=== PATIENT | male | born 1970 | race Caucasian/White ===

== ENCOUNTER 2020-05-05 16:46 | Inpatient (IN) ==
[2020-05-05] MEDS ORDERED: ASPIRIN CHEW 324 MG PO STA (17:02)
[2020-05-05] MEDS ORDERED: SODIUM CHLORIDE 0.9% 1000ML 1,000 ML IV STA (17:02)
--- NOTE | 2020-05-05 17:09 | Emergency Department Note ---
History of Present Illness General Chief Complaint: Chest Pain Stated Complaint: CHEST PAIN SINCE LAST NIGHT Time Seen by Provider: 05/05/20 16:52 Source: patient Mode of arrival: ambulatory Limitations: no limitations History of Present Illness Provider Complaint: chest pain Onset (ago): day(s) 1 Duration: intermittent Onset: during rest Pain Location: substernal Pain Radiation: none Severity: severe Maximum Pain Intensity: 7 Current Pain Intensity: 7 Quality: + heaviness Relieved By: + nothing Exacerbated By: + nothing Associated symptoms: + diaphoresis Treatments prior to arrival: none This 50-year-old male patient presents to the emergency department today for evaluation of intermittent chest pain since last night. The patient states he did get into an argument with his last night and then when lying down to go to bed, developed several episodes of chest pain lasting approximately 30 mi nutes each. The patient states the pains did resolve on their own. They are nonexertional in nature. There is no associated shortness of breath, but he was feeling somewhat diaphoretic when the pains occurred. Patient states he awoke this morning and was feeling well. He was working on the house, painting and doing other labor type of activities but stresses that he was not doing anything overly exertional, but felt fine throughout the day. This evening when he got home, he sat down to eat some Cheetos when the pain began again. He states at this time, his pain is maybe a 1, "like it is there", but is not as severe as a 7 out of 10 as he was experiencing previously. Patient denies any palpitations. No associated shortness of breath. No cough or hemoptysis. No tachypnea. No numbness or tingling. No nausea or vomiting. No recent illness. Patient reports family history of heart attack in his maternal grandmother in her 60s and atrial fibrillation in his mother but no other history of cardiac disease that he is aware of. Patient is a former smoker. He denies any current tobacco use. He did just have a biometric screening completed yesterday and labs cholesterol appears to be good. Patient states he has been walking and doing some exercise with his over the past 2 to 3 days and has not experienced any chest pain during activity. Home Medications Medication Instructions Recorded Confirmed Type epinephrine 0.3 mg/0.3 mL 0.3 ml IM .INJECT 0.3ML INTRAMU #1 07/12/19 05/05/20 Rx injection, auto-injector ea amlodipine 5 mg tablet 5 mg PO DAILY #90 tab 04/10/20 05/05/20 Rx Allergies Allergy/AdvReac Type Severity Reaction Status Date / Time almond Allergy Unknown Verified 05/05/20 17:55 insect venom Allergy Unknown Verified 05/05/20 17:55 No Known Drug Allergies Allergy Unknown Verified 05/05/20 17:55 Past Med/Surg History Medical History (Updated 05/05/20 @ 23:33 by Macey Donovan PA-C) Allergic reaction to bee sting HTN (hypertension) Tobacco dependence Surgical History History of tonsillectomy History of tooth extraction Family History Other No significant family history Denies family history of Ovarian cancer Prostate cancer Myocardial infarction Breast cancer Colorectal cancer Social History Smoking Status: Current every day smoker Cigarettes Per Day: 10; Hx Alcohol Use: Yes Alcohol type: beer Hx Substance Use: No Preferred Language: Yoruba Communication Ability: Effective Visual Impairment: No Limitations Hearing Ability: Normal [employer] Required: No Beliefs That Will Affect Care: None marital status: Current Living Situation: Spouse and Family current occupational status: employed 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 Other Information That Helps Us Care for You: No Feels Safe at Home: Yes Safety Concerns: Feels Safe At This Time Childhood Exposure to Second-Hand Smoke: No caffeine: Yes Dental Care, Regularly: Yes Physical Activity Frequency: Daily Seatbelt Use: always Sunscreen Use: Yes Assistive Devices: None Review of Systems A total of 10 systems reviewed and were otherwise negative Physical Exam Vital Signs Vital Signs - 24 hr 05/05/20 16:48 05/05/20 17:07 05/05/20 17:17 Temperature 37.1 C Temperature Source Oral Pulse Rate 87 75 Pulse Rate from SpO2 Sensor Respiratory Rate 18 20 Respiratory Effort / Characteristics Non-Labored Spontaneous Respiratory Depth Normal Respiratory Pattern Regular Blood Pressure 163/98 H Blood Pressure Mean 119 Blood Pressure Position Sitting Pulse Oximetry 96 96 Oxygen Delivery Method Room Air Room Air Sepsis Recent Fever Within 48 Hours No Sepsis New/Unexplained Change in Mental Status N/A Sepsis Action Taken by Nursing No Action Required 05/05/20 17:19 05/05/20 17:20 05/05/20 17:30 Temperature Temperature Source Pulse Rate 77 72 67 Pulse Rate from SpO2 Sensor 77 72 68 Respiratory Rate 13 14 16 Respiratory Effort / Characteristics Respiratory Depth Respiratory Pattern Blood Pressure 139/96 134/86 Blood Pressure Mean 110 102 Blood Pressure Position Pulse Oximetry 95 97 96 Oxygen Delivery Method Sepsis Recent Fever Within 48 Hours Sepsis New/Unexplained Change in Mental Status Sepsis Action Taken by Nursing 05/05/20 17:31 05/05/20 18:00 05/05/20 18:01 Temperature Temperature Source Pulse Rate 68 71 71 Pulse Rate from SpO2 Sensor 69 72 72 Respiratory Rate 15 14 22 Respiratory Effort / Characteristics Respiratory Depth Respiratory Pattern Blood Pressure 130/87 Blood Pressure Mean 101 Blood Pressure Position Pulse Oximetry 97 97 98 Oxygen Delivery Method Sepsis Recent Fever Within 48 Hours Sepsis New/Unexplained Change in Mental Status Sepsis Action Taken by Nursing 05/05/20 18:30 05/05/20 18:31 05/05/20 19:00 Temperature Temperature Source Pulse Rate 70 74 76 Pulse Rate from SpO2 Sensor 71 72 76 Respiratory Rate 13 16 17 Respiratory Effort / Characteristics Respiratory Depth Respiratory Pattern Blood Pressure 146/97 H Blood Pressure Mean 113 Blood Pressure Position Pulse Oximetry 97 98 96 Oxygen Delivery Method Sepsis Recent Fever Within 48 Hours Sepsis New/Unexplained Change in Mental Status Sepsis Action Taken by Nursing 05/05/20 19:01 05/05/20 19:02 05/05/20 19:30 Temperature Temperature Source Pulse Rate 74 68 66 Pulse Rate from SpO2 Sensor 71 69 66 Respiratory Rate 20 22 14 Respiratory Effort / Characteristics Respiratory Depth Respiratory Pattern Blood Pressure 140/102 H 122/89 Blood Pressure Mean 114 100 Blood Pressure Position Pulse Oximetry 98 98 96 Oxygen Delivery Method Room Air Room Air Sepsis Recent Fever Within 48 Hours Sepsis New/Unexplained Change in Mental Status Sepsis Action Taken by Nursing 05/05/20 19:31 05/05/20 20:00 05/05/20 20:30 Temperature Temperature Source Pulse Rate 66 69 74 Pulse Rate from SpO2 Sensor 67 70 76 Respiratory Rate 14 14 21 Respiratory Effort / Characteristics Respiratory Depth Respiratory Pattern Blood Pressure 125/70 Blood Pressure Mean 88 Blood Pressure Position Pulse Oximetry 97 96 97 Oxygen Delivery Method Room Air Room Air Room Air Sepsis Recent Fever Within 48 Hours Sepsis New/Unexplained Change in Mental Status Sepsis Action Taken by Nursing 05/05/20 20:31 Temperature Temperature Source Pulse Rate 69 Pulse Rate from SpO2 Sensor 69 Respiratory Rate 20 Respiratory Effort / Characteristics Respiratory Depth Respiratory Pattern Blood Pressure 134/86 Blood Pressure Mean 102 Blood Pressure Position Pulse Oximetry 97 Oxygen Delivery Method Room Air Sepsis Recent Fever Within 48 Hours Sepsis New/Unexplained Change in Mental Status Sepsis Action Taken by Nursing VITALS: Vitals are noted on the nurse's note and reviewed by myself. Vital signs stable. GENERAL: This is a 50-year-old white male, in no acute distress, nondiaphoretic, well-developed well-nourished. SKIN: The skin was without rashes, erythema, edema, or bruising. There is no tenting of the skin. Capillary refill less than 2 seconds. HEAD: Normocephalic atraumatic. EYES: Conjunctivae without injection, sclerae without icterus. NECK: Supple without nuchal rigidity. No lymphadenopathy. Cervical spine is nontender. No JVD. HEART: Regular rate and rhythm without murmurs gallops or rubs. LUNGS: Clear to auscultation bilaterally without wheezes, rales or rhonchi. No retractions or accessory muscle use. ABDOMEN: Positive bowel sounds x 4. Normal tympanic percussion. Soft, nontender, without masses or organomegaly. No guarding or rebound tenderness. MUSCULOSKELETAL: No muscle atrophy, erythema, or edema noted. Full range of motion without joint tenderness in all extremities. No tenderness to palpation. Normal gait. Strength 5/5 throughout. NEURO: Patient was alert and oriented to person place and time. No focal neurological deficits. Course Course The patient was seen and evaluated as above. An order was placed for continuous cardiac monitoring. The monitor shows a normal sinus rhythm at a rate of 74 bpm. IV access obtained, labs drawn. Patient medicated with IV fluids and p.o. aspirin. Imaging performed and reviewed by myself and radiologist as noted. Labs reviewed by myself. I discussed the findings with the patient at bedside. I recommended admission. The patient was agreeable. I discussed the case with the manager code. I discussed the case with my attending. I discussed the case with Dr. Messina, [facility] physician. Please see his dictation regarding ongoing management care of this patient. Administered Medications Heparin Sodium/Dextrose (Heparin Sodium/Dextrose) 25,000 units in 500 mls @ 20 mls/hr IV .Q24H YEYO; Protocol Stop: 06/04/20 18:14 Last Admin: 05/05/20 18:19 Dose: 1,000 units/hr, 20 mls/hr Documented by: [id number] Cosigned by: [id number] Discontinued Medications Aspirin (Aspirin Chew 324 Mg) 324 mg PO NOW STA Stop: 05/05/20 17:03 Last Admin: 05/05/20 17:18 Dose: 324 mg Documented by: [id number] Heparin Sodium (Porcine) (Heparin Sod (Porcine) 1000 Unit/Ml 10 Ml Vial) Confirm Administered Dose 10,000 units .ROUTE .STK-MED ONE Stop: 05/05/20 18:16 Last Admin: 05/05/20 18:20 Dose: 4,000 units Documented by: [id number] Cosigned by: [id number] Heparin Sodium/Dextrose (Heparin Iv Low Dose With Bolus) 1 ea N/A NOW [facility]; Protocol Stop: 05/05/20 18:10 Last Admin: 05/05/20 18:26 Dose: Not Given Documented by: [id number] Sodium Chloride (Nss 1000ml) 1,000 mls @ 999 mls/hr IV .Q1H1M STA Stop: 05/05/20 18:02 Last Infusion: 05/05/20 18:26 Dose: 0 mls/hr Documented by: [id number] Admin: 05/05/20 17:18 Dose: 999 mls/hr Documented by: [id number] Medical Decision Making Differential Diagnosis + pneumothorax, + stable angina, + unstable angina pectoris, + atypical chest pain, + st elevation myocardial infarction, + costochondritis, + chest pain, + biliary colic, + cardiac ischemia, + myocarditis, + pericarditis, + costochondritis, + pleurisy, + aortic dissection, + pulmonary embolism, + pneumonia, + musculoskeletal, + infections, + cholecystitis, + pancreatitis and + esophageal rupture Medical Records Attestation: I reviewed the patient's medical records. Home Medications Current Medication List: was personally reviewed by me Laboratory Data Attestation: I reviewed the patient's lab results. Lab results narrative: No leukocytosis, anemia, thrombocytopenia. Renal, hepatic function, and electrolytes without significant abnormality. Coags normal. Troponin elevated 0.420. Lipase 136. COVID-19 testing negative. Result diagrams: 05/05/20 17:08 05/05/20 17:08 Labs: Lab Results 05/05/20 05/05/20 05/05/20 Range/Units 17:08 17:08 17:28 WBC 9.60 (4.8-10.8) K/uL RBC 5.31 (4.7-6.1) M/uL Hgb 16.2 (14.0-18.0) g/dL Hct 48.1 (42-52) % MCV 90.6 (80-100) fL MCH 30.5 (25-34) pg MCHC 33.7 (32-36) g/dL RDW Std Deviation 43.1 (36.4-46.3) fL RDW Coeff of Anurag 13.0 (11.5-14.5) % Plt Count 240 (130-400) K/uL MPV 10.2 (7.4-10.4) fL Immature Gran % (Auto) 0.3 % Neut % (Auto) 62.6 % Lymph % (Auto) 27.9 % [place] % (Auto) 6.9 % Eos % (Auto) 2.1 % Baso % (Auto) 0.2 % Neut # (Auto) 6.01 (1.4-6.5) K/uL Lymph # (Auto) 2.68 (1.2-3.4) K/uL [place] # (Auto) 0.66 H (0.11-0.59) K/uL Eos # (Auto) 0.20 (0-0.5) K/uL Baso # (Auto) 0.02 (0-0.2) K/uL Immature Gran # (Auto) 0.03 H (0.00-0.02) K/uL PT 9.8 (9.0-12.0) Seconds INR 1.0 (0.9-1.1) APTT 26.8 (21.0-31.0) Seconds PTT Ratio 1.0 Sodium 142 (136-145) mmol/L Potassium 3.6 (3.5-5.1) mmol/L Chloride 107 (98-107) mmol/L Carbon Dioxide 24 (21-32) mmol/L Anion Gap 11.0 (3-11) BUN 15 (7-18) mg/dl Creatinine 1.11 (0.6-1.4) mg/dl Est Cr Clr Drug Dosing 100.0 ml/min Est GFR ( Amer) 88.6 Est GFR (Non-Af Amer) 76.5 BUN/Creatinine Ratio 13.4 (10-20) Glucose 134 H (70-99) mg/dl Calcium 8.9 (8.5-10.1) mg/dl Total Bilirubin 0.3 (0.2-1) mg/dl AST 18 (15-37) U/L ALT 42 (12-78) U/L Alkaline Phosphatase 65 (45-117) U/L Troponin I 0.420 H* (0-0.045) ng/ml Total Protein 7.1 (6.4-8.2) gm/dl Albumin 3.8 (3.4-5.0) gm/dl Globulin 3.3 (2.5-4.0) gm/dl Albumin/Globulin Ratio 1.2 (0.9-2) Lipase 136 (73-393) U/L COVID-19 Eval Order SARS-CoV-2, RNA, NAAT (NEGATIVE) 05/05/20 05/05/20 05/05/20 Range/Units 18:48 18:48 20:30 WBC (4.8-10.8) K/uL RBC (4.7-6.1) M/uL Hgb (14.0-18.0) g/dL Hct (42-52) % MCV (80-100) fL MCH (25-34) pg MCHC (32-36) g/dL RDW Std Deviation (36.4-46.3) fL RDW Coeff of Anurag (11.5-14.5) % Plt Count (130-400) K/uL MPV (7.4-10.4) fL Immature Gran % (Auto) % Neut % (Auto) % Lymph % (Auto) % [place] % (Auto) % Eos % (Auto) % Baso % (Auto) % Neut # (Auto) (1.4-6.5) K/uL Lymph # (Auto) (1.2-3.4) K/uL [place] # (Auto) (0.11-0.59) K/uL Eos # (Auto) (0-0.5) K/uL Baso # (Auto) (0-0.2) K/uL Immature Gran # (Auto) (0.00-0.02) K/uL PT (9.0-12.0) Seconds INR (0.9-1.1) APTT (21.0-31.0) Seconds PTT Ratio Sodium (136-145) mmol/L Potassium (3.5-5.1) mmol/L Chloride (98-107) mmol/L Carbon Dioxide (21-32) mmol/L Anion Gap (3-11) BUN (7-18) mg/dl Creatinine (0.6-1.4) mg/dl Est Cr Clr Drug Dosing ml/min Est GFR ( Amer) Est GFR (Non-Af Amer) BUN/Creatinine Ratio (10-20) Glucose (70-99) mg/dl Calcium (8.5-10.1) mg/dl Total Bilirubin (0.2-1) mg/dl AST (15-37) U/L ALT (12-78) U/L Alkaline Phosphatase (45-117) U/L Troponin I 0.421 H* (0-0.045) ng/ml Total Protein (6.4-8.2) gm/dl Albumin (3.4-5.0) gm/dl Globulin (2.5-4.0) gm/dl Albumin/Globulin Ratio (0.9-2) Lipase (73-393) U/L COVID[facility]19 [facility], [facility], NAAT NEGATIVE (NEGATIVE) Imaging Data Chest x-ray: Radiologist's impression: XR chest 1V portable CLINICAL HISTORY: Chest Pain COMPARISON STUDY: Chest radiograph October 30, 2013. FINDINGS: Lung volumes are normal. Minimal left basilar opacity favors atelectasis. There is no pneumothorax or pleural effusion. Cardiac size is normal. Mediastinal contours are normal. There is no evidence for pulmonary edema. IMPRESSION: No acute cardiopulmonary findings. ACT 112: Negative or not required by law. Electronically signed by: Bryan Rodriguez M.D. 05/05/2020 5:16 PM ECG Data Attestation: I personally reviewed and interpreted this ECG as follows: Indication: chest pain Rate (beats per minute): 85 Rhythm: normal sinus Findings: no ST depression, no T-wave inversion, no ST elevation, no acute ischemic change and no ectopy Comparison ECG Date: no prior available Blood Pressure Blood Pressure Findings: Elevated blood pressure Blood Pressure Disposition: elevated BP felt to be situational MDM Narrative This 50-year-old male patient presents to the emergency department today for evaluation of chest pain. Pain is nonexertional in nature, however given the history and his risk factors, we did elect to perform further work-up to rule out cardiac etiology. Patient does have a positive troponin of 0.4. Heart score is 5. No EKG changes. Patient is asymptomatic while in the emergency department. He was treated with aspirin and ultimately heparin. [facility]. Please see hospitalist dictation regarding ongoing management and care of this patient. The chart was completed utilizing [employer] Speech voice recognition software. Grammatical errors, random word insertions, pronoun errors, and incomplete sentences are an occasional consequence of this system due to software limitations, ambient noise, and hardware issues. Any formal questions or concerns about the content, text, or information contained within the body of this dictation should be directly addressed to the provider for clarification. Impression & Plan Chest pain, Non-ST elevation SD (NSTEMI) Critical Care Time Critical Care Time: Yes Total Critical Care Time: 25 I have personally spent greater than 25 minutes of critical care time in the direct management of this patient to assess and manage high likelihood of life- threatening cardiovascular decline. This includes bedside care, interpretation of diagnostic studies, and testing, discussion with consultants, patient, and family members, documentation time, and other required patient management activities. This 25 minutes is in excess of all separately billable procedures. Discharge Plan Visit Data Chief Complaint: Chest Pain Stated Complaint: CHEST PAIN SINCE LAST NIGHT ED Provider: Abdulkadir Grewal ED Midlevel Provider: Macey Donovan Discharge Problem: Chest pain, Non-ST elevation SD (NSTEMI) Patient Disposition: Admitted As Inpatient Discharge Instructions Interventions: ED Discharge Assessment Last Done: 05/05/20 20:49 Discharge Problem: Chest pain Qualifiers: Chest pain type: unspecified Qualified Code(s): R07.9 - Chest pain, unspecified
--- NOTE | 2020-05-05 17:17 | XRay Report ---
XR chest 1V portable CLINICAL HISTORY: Chest Pain COMPARISON STUDY: Chest radiograph October 30, 2013. FINDINGS: Lung volumes are normal. Minimal left basilar opacity favors atelectasis. There is no pneum othorax or pleural effusion. Cardiac size is normal. Mediastinal contours are normal. There is no katherine dence for pulmonary edema. IMPRESSION: No acute cardiopulmonary findings. ACT 112: Negative or not required by law. Electronically signed by: Bryan Rodriguez M.D. 05/05/2020 5:16 PM
[2020-05-05 17:18] LABS: Basophils # (auto) 0.02 K/uL (0-0.2); Basophils % (auto) 0.2 %; Eosinophils % (auto) 2.1 %; Hematocrit (blood only) 48.1 % (42-52); Hemoglobin 16.2 g/dL (14.0-18.0); Immature Granulocytes # (auto) 0.03 K/uL (0.00-0.02); Immature Granulocytes % (auto) 0.3 %; Lymphocytes # (auto) 2.68 K/uL (1.2-3.4); Lymphocytes % (auto) 27.9 %; Mean Corpuscular Hemoglobin 30.5 pg (25-34); Mean Corpuscular Hgb Conc 33.7 g/dL (32-36); Mean Corpuscular Volume 90.6 fL (80-100); Mean Platelet Volume 10.2 fL (7.4-10.4); Monocytes # (auto) 0.66 K/uL (0.11-0.59); Monocytes % (auto) 6.9 %; Neutrophils # (auto) 6.01 K/uL (1.4-6.5); Neutrophils % (auto) 62.6 %; Platelet Count 240 K/uL (130-400); RDW Standard Deviation 43.1 fL (36.4-46.3); Red Blood Count 5.31 M/uL (4.7-6.1)
[2020-05-05 17:35] LABS: Albumin Level 3.8 gm/dl (3.4-5.0); BUN Creatinine Ratio 13.4 (10-20); Calcium 8.9 mg/dl (8.5-10.1); Est GFR (African American) 88.6; Est GFR (Non-African American) 76.5; Potassium 3.6 mmol/L (3.5-5.1)
[2020-05-05 17:52] LABS: Albumin Globulin Ratio 1.2 (0.9-2); Bilirubin,Total 0.3 mg/dl (0.2-1); Globulin 3.3 gm/dl (2.5-4.0); Total Protein 7.1 gm/dl (6.4-8.2); Troponin I 0.42 ng/ml (0-0.045)
[2020-05-05] MEDS ORDERED: Heparin IV Adult Wt-Based Low-Dose WITH Bolus Protocol STA (18:09)
[2020-05-05] MEDS ORDERED: HEPARIN SODIUM/DEXTROSE 25,000 UNITS/500 ML BAG IV SCH (18:15)
[2020-05-05] MEDS ORDERED: HEPARIN SOD (PORCINE) 1000 UNIT/ML ONE (18:15)
[2020-05-05 18:34] LABS: Partial Thromboplastin Time 26.8 Seconds (21.0-31.0); Prothrombin Time 9.8 Seconds (9.0-12.0)
--- NOTE | 2020-05-05 18:55 | History & Physical Report ---
Date of Service May 05, 2020 Assessment & Plan (1) Chest pain: NSTEMI Trp: 0.[address] on heparin consult cardio obtain echo monitor (2) HTN (hypertension): resume amlodipine bp at goal. (3) Obesity (BMI 30-39.9): recommend weight loss. History of Present Illness Chief Complaint: chest pain Primary Care Provider: Venancio Clark DO 50-year-old male presents to the emergency department today for evaluation of intermittent chest pain since last night. He reports being in an argument with his last night. And while at rest he had 3 episodes of 30 minutes left sided, pressure like chest pain. The patient states the pains did resolve on their own. They are nonexertional in nature No alleviating or aggravating factors noted. There is no associated shortness of breath, but he was feeling somewhat diaphoretic when the pains occurred. Patient states he awoke this morning and was feeling well. He was working on the house, painting and doing other labor type of activities but stresses that he was not doing anything overly exertional, but felt fine throughout the day. This evening when he got home, he sat down to eat when the pain began. Pain is mild and not as severe as a 7 out of 10 as he was experiencing previously. Adrianne ent denies any palpitations. No associated shortness of breath. No cough or hemoptysis. No tachypnea. No numbness or tingling. No nausea or vomiting. No recent illness. Patient reports family history of heart attack in his maternal grandmother in her 60s and atrial fibrillation in his mother but no other history of cardiac disease that he is aware of. Patient is a former smoker. He denies any current tobacco use. He did just have a biometric screening completed yesterday and labs cholesterol appears to be good. Patient states he has been walking and doing some exercise with his over the past 2 to 3 days and has not experienced any chest pain during activity. Allergies Allergy/AdvReac Type Severity Reaction Status Date / Time almond Allergy Unknown Verified 05/05/20 17:55 insect venom Allergy Unknown Verified 05/05/20 17:55 No Known Drug Allergies Allergy Unknown Verified 05/05/20 17:55 Home Medications Medication Instructions Recorded Confirmed Type epinephrine 0.3 mg/0.3 mL 0.3 ml IM .INJECT 0.3ML INTRAMU #1 05/06/20 02/28/21 R x injection, auto-injector ea amlodipine 5 mg tablet 5 mg PO DAILY #90 tab 04/10/20 05/05/20 Rx Past Med/Surg History Medical History (Updated 05/05/20 @ 23:23 by Raman Messina) Allergic reaction to bee sting HTN (hypertension) Tobacco dependence Surgical History History of tonsillectomy History of tooth extraction Family History Other No significant family history Denies family history of Ovarian cancer Prostate cancer Myocardial infarction Breast cancer Colorectal cancer Social History Smoking Status: Current every day smoker Cigarettes Per Day: 10; Hx Alcohol Use: Yes Alcohol type: beer Hx Substance Use: No Preferred Language: Greenlandic Communication Ability: Effective Visual Impairment: No Limitations Hearing Ability: Normal Sports Commentator Required: No Beliefs That Will Affect Care: None marital status: Current Living Situation: Spouse and Family current occupational status: employed 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 Other Information That Helps Us Care for You: No Feels Safe at Home: Yes Safety Concerns: Feels Safe At This Time Childhood Exposure to Second-Hand Smoke: No caffeine: Yes Dental Care, Regularly: Yes Physical Activity Frequency: Daily Seatbelt Use: always Sunscreen Use: Yes Assistive Devices: None Review of Systems Constitutional: + sweats; no malaise Eyes: no diplopia and no decreased night vision Ear, Nose, Mouth, Throat: no ear trauma and no hyperacusis Respiratory: no change in sputum Cardiovascular: no chest pain with activity and no dyspnea at rest Gastrointestinal: no bloating Genitourinary: no urinary frequency Musculoskeletal: no radicular pain Integumentary: no rash Neurologic: no falls Psychiatric: no hopelessness Physical Exam Constitutional: WD/WN, vitals as above well developed Eyes: PERRL, conjunctivae normal, anicteric sclerae ENMT: external ear and nose normal, oropharynx normal Neck: trachea midline, no thyromegaly Respiratory: normal respiratory effort, lungs clear to auscultation Cardiovascular: RRR, no murmur, no edema Gastrointestinal (Abdomen): normal bowel sounds, soft, nontender, no hepatosplenomegaly Musculoskeletal: no cyanosis or clubbing, extremities motor strength 5/5 Skin: no rashes, warm and dry Neurologic: PERRL, EOMI, accommodation nl, no face palsy, no dysarthria Psychiatric: A+Ox3, euthymic affect Lymphatic: no cervical or axillary lymphadenopathy Results & Data Results & Data ([facility]) Vital Signs (Past 12 Hours) Vital Signs Temp Pulse Resp BP Pulse Ox 05/05/20 18:31 74 16 98 05/05/20 18:30 70 13 146/97 H 97 05/05/20 18:01 71 22 98 05/05/20 18:00 71 14 130/87 97 05/05/20 17:31 68 15 97 05/05/20 17:30 67 16 134/86 96 05/05/20 17:20 72 14 97 05/05/20 17:19 77 13 139/96 95 05/05/20 17:17 96 05/05/20 17:07 75 20 05/05/20 16:48 37.1 C 87 18 163/98 H 96 PG Care Time/CCT Total # of Minutes Spent Total Time Spent with Patient: Total time spent is greater than 50% in coordination of care (as documented) at patient's floor/unit and/or counseling patient: Coding Level of Care Code 42222 Initial Inpt Care Lvl 3 Diagnoses Chest pain R07.9 HTN (hypertension) I10 Obesity (BMI 30-39.9) E66.9 Time Spent (min) 50
[2020-05-05] MEDS ORDERED: NITROGLYCERIN SL 0.4 MG/TAB TAB SL PRN (20:58)
[2020-05-05] MEDS ORDERED: ACETAMINOPHEN 325 MG TAB PO PRN (20:58)
[2020-05-06 00:52] LABS: Partial Thromboplastin Ratio 1.1
[2020-05-06] MEDS ORDERED: HEPARIN IV BOLUS 4,500 UNITS in SYRINGE 0 ML IV ONE (01:15)
[2020-05-06 07:37] LABS: Partial Thromboplastin Ratio 1.4; Partial Thromboplastin Time 37.5 Seconds (21.0-31.0)
[2020-05-06] MEDS: amLODIPine BESYLATE 5 MG TAB PO SCH (08:07)
[2020-05-06] MEDS ORDERED: HEPARIN IV BOLUS 4,000 UNITS in SYRINGE 0 ML IV ONE (09:45)
--- NOTE | 2020-05-06 09:50 | Cardiology Consultation ---
Date of Consultation May 06, 2020 Assessment & Plan (1) Non-ST elevation [place] (NSTEMI): Mr. Reno is a 50 year old male with a history of Hypertension, Obesity, Tobacco Use, and Hypercholesterolemia who presented to [facility] last evening 05/05/20 with an NSTEMI. He denies any prior cardiac history or events -- but he has multiple risk factors. The patient has been doing a remodeling project and was upset about something and he got into an argument with his on the evening of 05/04/20. He then went to bed and as he was lying there he developed 3 different episodes of chest pain with associated diaphoresis. Each of these episodes last approximately 30 minutes and at their worst he rated the pain at a 7/10. The chest pains resolved on their own. Patient denies any associated nausea, vomiting, or dyspnea. The chest pain was not related to exertion, all the episodes occurred at rest. Patient awoke on the morning 05/05/20 and was feeling well. He was working on the house, painting, and doing other labor type of activities but stresses that he was not doing anything overly exertional, but felt fine throughout the day. On the evening of 05/05/20 after he got home, he sat down to eat some Cheetos when he developed recurrent chest pain. He mentioned it to his who came with him to the ER. Patient has not had any recurrent chest pain or angina since being admitted, he is currently asymptomatic. His Troponin I levels are abnormal at 0.420, 0.421, 0.387, and 0.349 ng/ml. EKG's show NSR without acute ST deviation or dynamic changes. He is currently on a Heparin drip. Echocardiogram has been done -- overall LV systolic function and wall motion are normal (box closing machine operator's interpretation is pending). Recommend the following: -- Cardiac Catheterization/Coronary Angiography today. -- Begin Aspirin 81 mg daily. -- Continue Heparin drip. -- Begin Atorvastatin 80 mg daily. -- Begin Lopressor 25 mg b.i.d.. -- Continue Amlodipine 5 mg daily. -- Consider low dose ACEI or ARB if BP allows. -- Stop using tobacco products. (2) HTN (hypertension): -- Begin Lopressor 25 mg b.i.d.. -- Continue Amlodipine 5 mg daily. -- Consider low dose ACEI or ARB if BP allows. (3) Hypercholesterolemia: -- Begin Atorvastatin 80 mg daily. -- Mediterranean diet. (4) Tobacco dependence: -- Strongly encouraged smoking cessation. Supervising Physician Co-Signing Physician Notes Patient seen and examined. Agree with assessment and plan as outlined by GIOVANNA Muñoz. Presentation consistent with NSTEMI in 50-year-old male with multiple ASCVD risk factors. Currently chest pain-free, hemodynamically and electrically stable. No signs of heart failure on exam. Agree with additional risk stratification by cardiac catheterization via right radial artery. Discussed procedure with patient including risk, benefits, alternatives and he is willing to proceed. Further recommendations pending findings. History of Present Illness Reason for Consultation: -- Chest Pain. -- Elevated Troponin I. Requesting Physician: Raman Messina Attending Physician: Kojo Pereira MD History of Present Illness Mr. Reno is a 50 year old male with a history of Hypertension, Obesity, Tobacco Use, and Hypercholesterolemia who presented to [facility] last evening complaining of chest pain that began on the evening of 05/04/2020. The patient has been doing a remodeling project and was upset about something and he got into an argument with his on the evening of 05/04/20. He then went to bed and as he was lying there he developed 3 different episodes of chest pain with associated diaphoresis. Each of these episodes last approximately 30 minutes and at their worst he rated the pain at a 7/10. The chest pains resolved on their own. Patient denies any associated nausea, vomiting, or dyspnea. The chest pain was not related to exertion, all the episodes occurred at rest. Patient awoke on the morning 05/05/20 and was feeling well. He was working on the house, painting, and doing other labor type of activities but stresses that he was not doing anything overly exertional, but felt fine throughout the day. On the evening of 05/05/20 after he got home, he sat down to eat some Cheetos when he developed recurrent chest pain. He mentioned it to his who came with him to the ER. Patient has not had any recurrent chest pain or angina since being admitted. Allergies Allergy/AdvReac Type Severity Reaction Status Date / Time almond Allergy Unknown Verified 05/05/20 17:55 insect venom Allergy Unknown Verified 05/05/20 17:55 No Known Drug Allergies Allergy Unknown Verified 05/05/20 17:55 Home Medications Medication Instructions Recorded Confirmed Type epinephrine 0.3 mg/0.3 mL 0.3 ml IM .INJECT 0.3ML INTRAMU #1 07/12/19 05/05/20 Rx injection, auto-injector ea amlodipine 5 mg tablet 5 mg PO DAILY #90 tab 04/10/20 05/05/20 Rx Patient History Medical History (Updated 05/06/20 @ 09:53 by Cesar Muñoz PA-C) Allergic reaction to bee sting HTN (hypertension) Tobacco dependence Surgical History History of tonsillectomy History of tooth extraction Family History Other No significant family history Denies family history of Ovarian cancer Prostate cancer Myocardial infarction Breast cancer Colorectal cancer Social History Smoking Status: Current every day smoker Cigarettes Per Day: 10; Hx Alcohol Use: Yes Alcohol type: beer Hx Substance Use: No Preferred Language: Japanese Communication Ability: Effective Visual Impairment: No Limitations Hearing Ability: Normal Air Compressor Operator Required: No Beliefs That Will Affect Care: None marital status: Current Living Situation: Spouse and Family current occupational status: employed 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 HEENT: Head is atraumatic, normocephalic. EOM's intact. Facies symmetric. No perioral cyanosis. NECK: No JVD. JVP is not elevated. Carotid upstrokes are + 2 bilaterally. No bruits are noted. CHEST/LUNGS: Clear to auscultation throughout all lung gamez. No wheezes, rales, or crackles. CVS: S1 and S2 are regular without obvious murmurs, gallops, or rubs. PMI is nondisplaced. No lifts, heaves, or thrills. No abdominal aortic or renal bruits. ABDOMINAL EXAM: Bowel sounds are present. No masses, organomegaly, or tenderness. EXTREMITIES: No clubbing or cyanosis. No edema. Intact posterior tibial and radial pulses bilaterally. Usman's test is positive for both right ulnar and radial arterial reflow. NEUROLOGIC EXAM: Patient is awake, alert, and oriented. Pleasant and cooperative. Answers questions appropriately. Speech is clear. Normal movement in all 4 extremities. Gait pattern is unremarkable. EKG 05/06/2020: -- NSR at 66 bpm. -- Left axis deviation. -- When compared to 05/05/20 tracing: no significant change. EKG 05/05/20: -- NSR at 85 bpm. -- Left axis deviation. Results & Data ([facility]) Vital Signs (Past 12 Hours) Vital Signs Temp Pulse Resp BP Pulse Ox 05/06/20 07:50 36.8 C 63 19 111/71 96 05/06/20 04:05 36.8 C 72 20 122/79 96 05/06/20 00:39 36.8 C 73 16 134/72 96 Laboratory Results Laboratory Results - last 24 hr 05/05/20 05/05/20 05/05/20 17:08 17:08 17:28 WBC 9.60 RBC 5.31 Hgb 16.2 Hct 48.1 MCV 90.6 MCH 30.5 MCHC 33.7 RDW Std Deviation 43.1 RDW Coeff of Anurag 13.0 Plt Count 240 MPV 10.2 Immature Gran % (Auto) 0.3 Neut % (Auto) 62.6 Lymph % (Auto) 27.9 [place] % (Auto) 6.9 Eos % (Auto) 2.1 Baso % (Auto) 0.2 Neut # (Auto) 6.01 Lymph # (Auto) 2.68 [place] # (Auto) 0.66 H Eos # (Auto) 0.20 Baso # (Auto) 0.02 Immature Gran # (Auto) 0.03 H PT 9.8 INR 1.0 APTT 26.8 PTT Ratio 1.0 Sodium 142 Potassium 3.6 Chloride 107 Carbon Dioxide 24 Anion Gap 11.0 BUN 15 Creatinine 1.11 Est Cr Clr Drug Dosing 100.0 Est GFR ( Amer) 88.6 Est GFR (Non-Af Amer) 76.5 BUN/Creatinine Ratio 13.4 Glucose 134 H Calcium 8.9 Total Bilirubin 0.3 AST 18 ALT 42 Alkaline Phosphatase 65 Troponin I 0.420 H* Total Protein 7.1 Albumin 3.8 Globulin 3.3 Albumin/Globulin Ratio 1.2 Lipase 136 COVID-19 Eval Order SARS-CoV-2, RNA, NAAT 05/05/20 05/05/20 05/05/20 18:48 18:48 20:30 WBC RBC Hgb Hct MCV MCH MCHC RDW Std Deviation RDW Coeff of Anurag Plt Count MPV Immature Gran % (Auto) Neut % (Auto) Lymph % (Auto) [place] % (Auto) Eos % (Auto) Baso % (Auto) Neut # (Auto) Lymph # (Auto) [place] # (Auto) Eos # (Auto) Baso # (Auto) Immature Gran # (Auto) PT INR APTT PTT Ratio Sodium Potassium Chloride Carbon Dioxide Anion Gap BUN Creatinine Est Cr Clr Drug Dosing Est GFR ( Amer) Est GFR (Non-Af Amer) BUN/Creatinine Ratio Glucose Calcium Total Bilirubin AST ALT Alkaline Phosphatase Troponin I 0.421 H* Total Protein Albumin Globulin Albumin/Globulin Ratio Lipase COVID-19 Eval [facility] [place] SARS-CoV-2, RNA, NAAT NEGATIVE 05/06/20 05/06/20 05/06/20 00:32 00:32 07:02 WBC RBC Hgb Hct MCV MCH MCHC RDW Std Deviation RDW Coeff of Anurag Plt Count MPV Immature Gran % (Auto) Neut % (Auto) Lymph % (Auto) [place] % (Auto) Eos % (Auto) Baso % (Auto) Neut # (Auto) Lymph # (Auto) [place] # (Auto) Eos # (Auto) Baso # (Auto) Immature Gran # (Auto) PT INR APTT 30.0 PTT Ratio 1.1 Sodium Potassium Chloride Carbon Dioxide Anion Gap BUN Creatinine Est Cr Clr Drug Dosing Est GFR ( Amer) Est GFR (Non-Af Amer) BUN/Creatinine Ratio Glucose Calcium Total Bilirubin AST ALT Alkaline Phosphatase Troponin I 0.387 H* 0.349 H* Total Protein Albumin Globulin Albumin/Globulin Ratio Lipase COVID-19 Eval Order SARS-CoV-2, RNA, NAAT 05/06/20 07:02 WBC RBC Hgb Hct MCV MCH MCHC RDW Std Deviation RDW Coeff of Anurag Plt Count MPV Immature Gran % (Auto) Neut % (Auto) Lymph % (Auto) [place] % (Auto) Eos % (Auto) Baso % (Auto) Neut # (Auto) Lymph # (Auto) [place] # (Auto) Eos # (Auto) Baso # (Auto) Immature Gran # (Auto) PT INR APTT 37.5 H PTT Ratio 1.4 Sodium Potassium Chloride Carbon Dioxide Anion Gap BUN Creatinine Est Cr Clr Drug Dosing Est GFR ( Amer) Est GFR (Non-Af Amer) BUN/Creatinine Ratio Glucose Calcium Total Bilirubin AST ALT Alkaline Phosphatase Troponin I Total Protein Albumin Globulin Albumin/Globulin Ratio Lipase COVID-19 Eval Order SARS-CoV-2, RNA, NAAT Diagnostic Findings CXR 05/06/2020: --Lung volumes are normal. Minimal left basilar opacity favors atelectasis. There is no pneumothorax or pleural effusion. Cardiac size is normal. Mediastinal contours are normal. There is no evidence for pulmonary edema. -- No acute cardiopulmonary findings. Medications Administered Amlodipine Besylate (Amlodipine Besylate 5 Mg Tab) 5 mg PO DAILY YEYO Stop: 06/05/20 08:59 Last Admin: 05/06/20 08:07 Dose: 5 mg Documented by: [id number] Heparin Sodium/Dextrose (Heparin Sodium/Dextrose) 25,000 units in 500 mls @ 25 mls/hr IV .Q20H YEYO; Protocol Stop: 06/04/20 18:14 Last Titration: 05/06/20 07:11 Dose: 1,250 units/hr, 25 mls/hr Documented by: [id number] Cosigned by: [id number] Titration: 05/06/20 01:21 Dose: 1,250 units/hr, 25 mls/hr Documented by: [id number] Cosigned by: [id number] Admin: 05/05/20 18:19 Dose: 1,000 units/hr, 20 mls/hr Documented by: [id number] Cosigned by: [id number] Discontinued Medications Aspirin (Aspirin Chew 324 Mg) 324 mg PO NOW STA Stop: 05/05/20 17:03 Last Admin: 05/05/20 17:18 Dose: 324 mg Documented by: [id number] Heparin Sodium (Porcine) (Heparin Sod (Porcine) 1000 Unit/Ml 10 Ml Vial) Confirm Administered Dose 10,000 units .ROUTE .STK-MED ONE Stop: 05/05/20 18:16 Last Admin: 05/05/20 18:20 Dose: 4,000 units Documented by: [id number] Cosigned by: [id number] Heparin Sodium/Dextrose (Heparin Iv Low Dose With Bolus) 1 ea N/A NOW STA; Protocol Stop: 05/05/20 18:10 Last Admin: 05/05/20 18:26 Dose: Not Given Documented by: [id number] Sodium Chloride (Nss 1000ml) 1,000 mls @ 999 mls/hr IV .Q1H1M STA Stop: 05/05/20 18:02 Last Infusion: 05/05/20 18:26 Dose: 0 mls/hr Documented by: [id number] Admin: 05/05/20 17:18 Dose: 999 mls/hr Documented by: [id number] Heparin Sodium (Porcine) 4,500 (units/ Syringe) 4.5 mls @ 10 mls/min IV ONE ONE Stop: 05/06/20 01:16 Last Admin: 05/06/20 01:21 Dose: 10 mls/min Documented by: [id number] Cosigned by: [id number] PG Care Time/CCT Total # of Minutes Spent Total Time Spent with Patient: Total time spent is greater than 50% in coordination of care (as documented) at patient's floor/unit and/or counseling patient:40 Coding Level of Care Code 60707 Inpt Consult Level 5 Diagnoses Non-ST elevation [place] (NSTEMI) I21.4 HTN (hypertension) I10 Hypercholesterolemia E78.00 Tobacco dependence F17.200
[2020-05-06] MEDS ORDERED: HEPARIN (PORCINE) 1000 UNIT/ML 10 ML (CATH LAB USE ONLY) ONE (11:02)
[2020-05-06] MEDS ORDERED: niCARdipine HCL INJ 2.5 MG/ML 10 ML AMP ONE (11:03)
[2020-05-06] MEDS ORDERED: MIDAZOLAM HCL 1 MG/ML 2ML VIAL ONE (11:03)
[2020-05-06] MEDS ORDERED: fentaNYL citrate 100 MCG/2 ML VIAL ONE (11:03)
[2020-05-06] MEDS ORDERED: NITROGLYCERIN/D5W 100MCG/ML 20ML SYR ONE (11:03)
--- NOTE | 2020-05-06 11:11 | Pre Anesthesia Assessment ---
Date of Service May 06, 2020 Pre Sedation Assessment Vital Signs Temp Pulse Pulse Resp BP BP Pulse Ox 05/06/20 07:50 98.2 F 63 19 111/71 96 05/06/20 04:05 98.2 F 72 20 122/79 96 05/06/20 00:39 98.2 F 73 16 134/72 96 05/05/20 21:04 98.2 F 74 18 135/97 96 05/05/20 20:31 69 20 134/86 97 05/05/20 20:30 74 21 97 05/05/20 20:00 69 14 125/70 96 05/05/20 19:31 66 14 97 05/05/20 19:30 66 14 122/89 96 05/05/20 19:02 68 22 98 05/05/20 19:01 74 20 140/102 H 98 05/05/20 19:00 76 17 96 05/05/20 18:31 74 16 98 05/05/20 18:30 70 13 146/97 H 97 05/05/20 18:01 71 22 98 05/05/20 18:00 71 14 130/87 97 05/05/20 17:31 68 15 97 05/05/20 17:30 67 16 134/86 96 05/05/20 17:20 72 14 97 05/05/20 17:19 77 13 139/96 95 05/05/20 17:17 96 05/05/20 17:07 75 20 05/05/20 16:48 98.8 F 87 18 163/98 H 96 Cardiovascular RRR, no murmur, no edema Respiratory normal respiratory effort, lungs clear to auscultation Pre-Sedation Airway Assessment Smoking Status: Current every day smoker Hx Sleep Apnea: No Hx Difficult Intubation: No Short, Thick Neck: No Thyromental Distance: > or= 3.5 Finger Breadths Oral Cavity: + WNL Mallampati Class: III ASA: ASA3 Procedure Planning Contraindications for Sedation: none Current Medications Reviewed: Yes Notes The planned sedation has been discussed with the patient. Informed Consent was obtained. I have identified the patient, determined the appropriateness of sedation and have assessed the patient immediately prior to the procedure. All medicine(s) and interventions are by my order.
[2020-05-06] MEDS ORDERED: TICAGRELOR 90 MG TAB PO ONE (12:16)
--- NOTE | 2020-05-06 12:25 | Post Anesthesia Assessment ---
Date of Service May 06, 2020 Post Sedation Assessment Vital Signs Temp Pulse Pulse Resp BP BP Pulse Ox 05/06/20 10:00 68 05/06/20 07:50 98.2 F 63 19 111/71 96 05/06/20 04:05 98.2 F 72 20 122/79 96 05/06/20 00:39 98.2 F 73 16 134/72 96 05/05/20 21:04 98.2 F 74 18 135/97 96 05/05/20 20:31 69 20 134/86 97 05/05/20 20:30 74 21 97 05/05/20 20:00 69 14 125/70 96 05/05/20 19:31 66 14 97 05/05/20 19:30 66 14 122/89 96 05/05/20 19:02 68 22 98 05/05/20 19:01 74 20 140/102 H 98 05/05/20 19:00 76 17 96 05/05/20 18:31 74 16 98 05/05/20 18:30 70 13 146/97 H 97 05/05/20 18:01 71 22 98 05/05/20 18:00 71 14 130/87 97 05/05/20 17:31 68 15 97 05/05/20 17:30 67 16 134/86 96 05/05/20 17:20 72 14 97 05/05/20 17:19 77 13 139/96 95 05/05/20 17:17 96 05/05/20 17:07 75 20 05/05/20 16:48 98.8 F 87 18 163/98 H 96 Recovery Score Activity: Moves 4 extremities Respiration: Deep Breath/Cough Circulation: +/-20% PreAnes Value Consciousness: Fully Awake Oxygen Saturation: O2 needed for >90% Discharge Sedation Level of Care: Fast Track Phase II Post Sedation Plan On clinical assessment, the patient appears to have tolerated the sedation without complications. Patient is recovering as anticipated. Patient will continue to be monitored by nursing and may be discharged when sedation discharge criteria are met per below protocol. Upon Completions of procedure up to 15 minutes continue every 5 minute vital signs and the P.A.R. score; then discharge to a Phase I or Fast Track to Phase II per the following guidelines: * Discharge Patient to appropriate Phase II area if PAR is 8 or greater or re turn to pre- procedure baseline. The post - procedure orders will be as directed. * If PAR score is less than 8 or not return to pre-procedure baseline then patient will follow Phase I monitoring till PAR is reached for Phase II. The Phase I may be done in procedure room or may call to secure a Phase I area. * If naloxone or flumazenil are used for reversal, hold in Phase I for continued monitoring from when last reversal dose was given for a minimum of 60 minutes or longer pending the nurse and/or physician discretion of patient condition before discharge to Phase II. Please call the Sedation Physician to re-evaluate and complete post-note for discharge to Phase II area. Do NOT discharge from procedure sedation or Phase 1 until post- sedation evaluation note is complete by procedure /sedation MD Sedation Discharge Instructions to be given to the patient at discharge to home.
--- NOTE | 2020-05-06 12:38 | Cardiac Catheterization ---
[facility] Data: Child Care Team Lead Cardiac Status Clinical evaluation leading to the procedure CAD Presenation: Non STEMI Anginal Classification: CCS IV Heart Failure: No Cardiogenic Shock within 24 Hours: No Cardiac Arrest within 24 Hours: No Imaging Studies Past 6 Months: Yes Stress Studies Past 6 Months: No Diagnostic Physicians Name: Forrest Goyal MD Status: Elective Closure Device Percutaneous Entry Location: Radial Closure Device: Radial Band Recommendations: PCI without planned CABG PCI Indication: PCI for high risk Non-GIOVANNI Lesion Segment Name: mid RCA Culprit Artery: Yes Stenosis Prior to Rx (%): 80 Chronic Total Occlusion: No IVUS: No FFR: No Pre-Procedure ROLO Flow: 3 Previously Treated Lesion: No Lesion Complexity: Non-High/Non-C Lesion Length (mm): 25 Thrombus Present: Yes Bifurcation Lesion: No Guidewire Across Lesion: Stenosis Post-Procedure (%): 0 Post-Procedure ROLO Flow: 3 Devices(s) Deployed: Yes Yes Intraprocedure Events Significant Disection: No Perforation: No Cardiac Cath Procedure Full Procedure Date May 06, 2020 Pre-Procedure Diagnosis Pre-Procedure Diagnosis: Non STEMI AUC Score AUC Score: 8 Post-Procedure Diagnosis Post-Procedure Diagnosis: Severe CAD, Successful PCI and Normal Intracardiac Pressures Procedure(s) Performed Procedure(s) Performed: Coronary Angiography, Left Heart Cath and Drug Eluting Stent Resource Development Manager Forrest Goyal MD Commercial Lender(s) Francesco Estimated Blood Loss Estimated Blood Loss: 15 Medication(s) Medication(s): Fentanyl, Heparin, Lidocaine 1%, Nicardipine, Nitroglycerin and Versed Summary of Findings Indication: NSTEMI Access: 6Fr right radial artery Catheters: JR4 guide Findings: LM -normal caliber, no significant disease LAD -medium caliber, 40% mid segment stenosis, angulated distal vessel that wraps around the apex. Medium caliber D1, D2 without significant disease. Circumflex -medium caliber, 30% proximal OM2 RCA -dominant, large caliber, 50% earlymid, 70 to 80% hazy mid stenosis at takeoff of acute marginal. Remainder of vessel without significant disease. LVEDP -7 -- PCI -- Antithrombotic therapy: Heparin, ticagrelor Procedure: RCA cannulated with JR4 guide BMW wire passed across lesion into distal vessel Mid RCA lesion predilated with 3.0 compliant balloon Dilated lesion stented with 4.0 x 18 mm [place] drug-eluting stent After stent inflation earlymid RCA segment with moderate disease more significant A second JAYDEN was placed more proximally (4.0 x 15 mm [place]) Post stent placement there was noted to be a residual gap between stents A third JAYDEN was placed in between initial stent overlapping both stents Stents post-dilated with 4.5 noncompliant balloon IC vasodilators administered for spasm Post procedure ROLO 3 flow, stents well expanded with minimal residual stenosis and no apparent cardiac complications. Arterial Closure: TR band Summary: 1. Severe single vessel coronary artery disease -Diffuse mid RCA disease up to 80% -40% mid LAD 30% proximal OM 2 2. Normal intracardiac filling pressure 3. Successful PCI of proximal to mid RCA with 3 overlapping drug-eluting stents (4.0 x 15, 4.0 x 12, 4.0 x 18 Suleiman; postdilated with 4.5 NC). Recommendations: To PCU for continued monitoring Loaded with ticagrelor 180 mg in Child Care Team Lead Continue dual-antiplatelet therapy for at least 1 year Consult cardiac Rehab Hemodynamics Rest Ao:: 104/70/88 Final Ao: 93/58/91 LV: 109/7 Recommendations Recommendations: PCI without planned CABG Specimens Specimens: None Radiation Exposure (mGy) 2882 Contrast (mls) 145 Fluids (cc crystalloids) Fluids (cc crystalloids): 200 Drains Drains: None Anesthesia Moderate Procedural Complication(s) None Disposition PCU I attest to the content of the Intraoperative Record and any orders documented therein. Any exceptions are noted below. [facility] Card Cath Procedure Codes Cardiac Catheterization Procedure 1: Cardiovascular Cath Procedures: 55069 Coronaries and LHC (+/-LV) Moderate Sedation Procedure 1: Sedation/Anesthesia: 95135 Mod Sedation by the same physician;Init15 Min Child Age 5 & Up Procedure 2: Sedation/Anesthesia: 82274 Mod Sedation by the same physician; Ea [id number] Minutes Stenting Procedure 1: Cardiovascular Stent Procedures: 96353 Perc transcatheter placement of intracoronary stent(s), with ang PG Care Time/CCT Total # of Minutes Spent Total Time Spent with Patient: Total time spent is greater than 50% in coordination of care (as documented) at patient's floor/unit and/or counseling patient:
[2020-05-06] MEDS ORDERED: SODIUM CHLORIDE 0.9% 1000ML 1,000 ML IV SCH (12:45)
[2020-05-06] MEDS: ASPIRIN 81 MG ECTAB PO SCH (13:05)
[2020-05-06] MEDS: METOPROLOL TARTRATE 25 MG TAB PO SCH ×2 (13:06→22:23)
[2020-05-06] MEDS: ATORVASTATIN 40 MG TAB PO SCH (13:06)
--- NOTE | 2020-05-06 13:58 | Electrocardiogram Report ---
Test Reason : Blood Pressure : / mmHG Vent. Rate : 085 BPM Atrial Rate : 085 BPM P-R Int : 160 ms QRS Dur : 092 ms QT Int : 374 ms P-R-T Axes : 062 -53 059 degrees QTc Int : 445 ms Normal sinus rhythm Left axis deviation Abnormal ECG When compared with ECG of 30-OCT-2013 20:03, Criteria for Septal infarct are no longer Present Confirmed by Kojo Pereira ([id number]) on 05/06/2020 1:58:25 PM Referred By: REFERRED SELF Confirmed By:Kojo Pereira
--- NOTE | 2020-05-06 14:17 | Electrocardiogram Report ---
Test Reason : Blood Pressure : / mmHG Vent. Rate : 066 BPM Atrial Rate : 066 BPM P-R Int : 154 ms QRS Dur : 088 ms QT Int : 418 ms P-R-T Axes : 077 -42 071 degrees QTc Int : 438 ms Normal sinus rhythm Left axis deviation Abnormal ECG When compared with ECG of 05-MAY-2020 16:52, (unconfirmed) No significant change was found Confirmed by Kojo Pereira ([id number]) on 05/06/2020 2:17:41 PM Referred By: REFERRED SELF Confirmed By:Kojo Pereira
--- NOTE | 2020-05-06 14:27 | Electrocardiogram Report ---
Test Reason : Blood Pressure : / mmHG Vent. Rate : 059 BPM Atrial Rate : 059 BPM P-R Int : 156 ms QRS Dur : 090 ms QT Int : 434 ms P-R-T Axes : 069 -27 073 degrees QTc Int : 429 ms Sinus bradycardia Otherwise normal ECG When compared with ECG of 06-MAY-2020 07:28, (unconfirmed) No significant change was found Confirmed by Kojo Pereira ([id number]) on 05/06/2020 2:26:50 PM Referred By: REFERRED SELF Confirmed By:Kojo Pereira
--- NOTE | 2020-05-06 15:52 | XCELERA ---
[id number]
--- NOTE | 2020-05-06 22:02 | Hospitalist Progress Note ---
Date of Service May 06, 2020 Assessment & Plan (1) Chest pain: NSTEMI Trp: 0.4 Had cardiac cath today. Summary: 1. Severe single vessel coronary artery disease -Diffuse mid RCA disease up to 80% -40% mid LAD 30% proximal OM 2 2. Normal intracardiac filling pressure 3. Successful PCI of proximal to mid RCA with 3 overlapping drug-eluting stents (4.0 x 15, 4.0 x 12, 4.0 x 18 [place]; postdilated with 4.5 NC). Recommendations: To PCU for continued monitoring Loaded with ticagrelor 180 mg in [employer] Continue dual-antiplatelet therapy for at least 1 year Consult cardiac Rehab (2) HTN (hypertension): resume amlodipine bp at goal. (3) Obesity (BMI 30-39.9): recommend weight loss. Admission and Anticipated Discharge Date Admission Date: May 05, 2020 Subjective Patient reports feeling well. He has no new complaints at this time. Review of Systems Review of Systems: All systems reviewed & are unremarkable except as noted in HPI & below Physical Exam Constitutional: WD/WN, vitals as above well developed Eyes: PERRL, conjunctivae normal, anicteric sclerae ENMT: external ear and nose normal, oropharynx normal Neck: trachea midline, no thyromegaly Respiratory: normal respiratory effort, lungs clear to auscultation Cardiovascular: RRR, no murmur, no edema Gastrointestinal (Abdomen): normal bowel sounds, soft, nontender, no hepatospl enomegaly Musculoskeletal: no cyanosis or clubbing, extremities motor strength 5/5 Skin: no rashes, warm and dry Neurologic: PERRL, EOMI, accommodation nl, no face palsy, no dysarthria Psychiatric: A+Ox3, euthymic affect Lymphatic: no cervical or axillary lymphadenopathy Results & Data Results & Data ([facility]) Vital Signs (Past 12 Hours) Vital Signs Temp Pulse Resp BP Pulse Ox 05/06/20 19:26 37.1 C 66 18 137/68 96 05/06/20 18:23 36.6 C 68 18 117/68 88 L 05/06/20 17:23 36.6 C 76 18 147/77 H 05/06/20 16:23 36.6 C 69 18 144/72 H 05/06/20 15:19 36.6 C 58 L 18 126/78 05/06/20 14:15 36.6 C 65 18 137/77 96 05/06/20 13:53 36.6 C 69 18 152/78 H 96 05/06/20 13:23 36.6 C 62 18 136/84 97 05/06/20 13:08 36.6 C 61 18 139/83 05/06/20 12:53 36.9 C 61 18 136/84 05/06/20 12:38 36.6 C 62 18 139/83 05/06/20 12:25 56 L 14 125/79 97 PG Care Time/CCT Total # of Minutes Spent Total Time Spent with Patient: Total time spent is greater than 50% in coordination of care (as documented) at patient's floor/unit and/or counseling patient: Coding Level of Care Code 21418 Subseq Hosp Care Lvl 3 Diagnoses Chest pain R07.9 Chest pain type: unspecified HTN (hypertension) I10 Obesity (BMI 30-39.9) E66.9 Time Spent (min) 35 (1) Chest pain Chest pain type: unspecified Qualified Code(s): R07.9 - Chest pain, unspec ified
[2020-05-06] MEDS: TICAGRELOR 90 MG TAB PO SCH (22:23)
[2020-05-07] MEDS: TICAGRELOR 90 MG TAB PO SCH (08:04)
[2020-05-07] MEDS: amLODIPine BESYLATE 5 MG TAB PO SCH (08:05)
[2020-05-07] MEDS: ATORVASTATIN 40 MG TAB PO SCH (08:05)
[2020-05-07] MEDS: ASPIRIN 81 MG ECTAB PO SCH (08:05)
[2020-05-07] MEDS: METOPROLOL TARTRATE 25 MG TAB PO SCH (08:06)
[2020-05-07] MEDS ORDERED: lisinopril 5 MG TAB PO SCH (09:00)
--- NOTE | 2020-05-07 11:16 | Electrocardiogram Report ---
Test Reason : Blood Pressure : / mmHG Vent. Rate : 068 BPM Atrial Rate : 068 BPM P-R Int : 152 ms QRS Dur : 088 ms QT Int : 386 ms P-R-T Axes : 064 -13 070 degrees QTc Int : 410 ms Normal sinus rhythm with sinus arrhythmia Normal ECG When compared with ECG of 06-MAY-2020 12:57, No significant change was found Confirmed by Kojo Pereira ([id number]) on 05/07/2020 11:16:33 AM Referred By: REFERRED SELF Confirmed By:Kojo Pereira
--- NOTE | 2020-05-07 12:51 | Cardiology Progress Note ---
Date of Service May 07, 2020 Assessment & Plan (1) Non-ST elevation DC (NSTEMI): 2. Coronary artery disease post PCI with 3 overlapping JAYDEN to proximal to mid RCA 3. Dyslipidemia 4. Tobacco abuse Stable post PCI yesterday. No recurrent chest pain. No access to complications. Stable on telemetry. From a cardiac standpoint okay with discharge today. Home on DAPT with aspirin, ticagrelor. Continue current statin, LEXUS, Toprol. Discussed smoking cessation Follow-up with me in 2 weeks. Will discuss further cardiac rehab at that time. Admission and Anticipated Discharge Date Admission Date: May 05, 2020 Subjective Feeling well today. No additional chest pain. No other new concerns. Telemetry reviewedno events. Review of Systems Review of Systems: All systems reviewed & are unremarkable except as noted in HPI & below Physical Exam Physical Exam: General: Comfortable, no acute distress HEENT: Sclerae anicteric, mucous membranes moist Lungs: Clear to auscultation bilaterally, no rhonchi or wheezes Cardiac: Regular rate and rhythm, no murmurs. Abdomen: Soft, nontender, nondistended, positive bowel sounds. Extremities: Warm, well perfused, no edema. Right radial artery access site with no ecchymosis, hematoma. Distal pulse and sensation intact. Skin: No rashes or lesions. Neuro: Nonfocal Psych: Alert orient x3, normal affect and mood Results & Data ([facility]) Vital Signs (Past 12 Hours) Vital Signs Temp Pulse Pulse Resp BP Pulse Ox 05/07/20 10:29 98.6 F 65 18 169/95 H 99 05/07/20 08:02 98.6 F 65 18 169/95 H 99 05/07/20 08:00 62 05/07/20 05:07 98.2 F 66 18 126/80 97 PG Care Time/CCT Total # of Minutes Spent Total Time Spent with Patient: Total time spent is greater than 50% in coordination of care (as documented) at patient's floor/unit and/or counseling patient: Coding Level of Care Code 58856 Subseq Hosp Care Lvl 3 Diagnoses Non-ST elevation DC (NSTEMI) I21.4
--- NOTE | 2020-05-15 07:34 | Discharge Summary ---
Date of Service May 07, 2020 Admission HPI Per Admitting Provider 50-year-old male presents to the emergency department today for evaluation of intermittent chest pain since last night. He reports being in an argument with his last night. And while at rest he had 3 episodes of 30 minutes left sided, pressure like chest pain. The patient states the pains did resolve on their own. They are nonexertional in nature No alleviating or aggravating factors noted. There is no associated shortness of breath, but he was feeling somewhat diaphoretic when the pains occurred. Patient states he awoke this morning and was feeling well. He was working on the house, painting and doing other labor type of activities but stresses that he was not doing anything overly exertional, but felt fine throughout the day. This evening when he got home, he sat down to eat when the pain began. Pain is mild and not as severe as a 7 out of 10 as he was experiencing previously. Patient denies any palpitations. No associated shortness of breath. No cough or hemoptysis. No tachypnea. No numbness or tingling. No nausea or vomiting. No recent illness. Patient reports family history of heart attack in his maternal grandmother in her 60s and atrial fibrillation in his mother but no other history of cardiac disease that he is aware of. Patient is a former smoker. He denies any current tobacco use. He did just have a biometric screening completed yesterday and labs cholesterol appears to be good. Patient states he has been walking and doing some exercise with his over the past 2 to 3 days and has not experienced any chest pain during activity. Principal Diagnosis NSTEMI Discharge Exam Constitutional: WD/WN, vitals as above well developed Eyes: PERRL, conjunctivae normal, anicteric sclerae ENMT: external ear and nose normal, oropharynx normal Neck: trachea midline, no thyromegaly Respiratory: normal respiratory effort, lungs clear to auscultation Cardiovascular: RRR, no murmur, no edema Gastrointestinal (Abdomen): normal bowel sounds, soft, nontender, no hepatosplenomegaly Musculoskeletal: no cyanosis or clubbing, extremities motor strength 5/5 Skin: no rashes, warm and dry Neurologic: PERRL, EOMI, accommodation nl, no face palsy, no dysarthria Psychiatric: A+Ox3, euthymic affect Lymphatic: no cervical or axillary lymphadenopathy Discharge Data Allergies Allergy/AdvReac Type Severity Reaction Status Date / Time almond Allergy Unknown Verified 05/13/20 11:27 insect venom Allergy Unknown Verified 05/13/20 11:27 No Known Drug Allergies Allergy Unknown Verified 05/13/20 11:27 Consultations 05/05/20 18:55 ED Decision to Admit Stat 05/06/20 07:38 Consult Cardiology Routine 05/06/20 10:00 Consult Cardiac Catheterization Routine 05/06/20 12:39 Consult Cardiac Rehabilitation Routine Procedures Performed Operation Date: 05/06/20 11:30 Actual Procedures s Cineradiography w/Routine Exam - Tano Goyal MD p Cath, Left with Cors and Vent - Tano Goyal MD s Drug Eluting Stent SGl Vessel - Tano Goyal MD Ordered Studies 05/06/20 11:12 CL Cath Imgs for PACS use only Routine Hospital Course (1) Chest pain: NSTEMI Trp: 0.4 Had cardiac cath on day prior to discharge. Summary: 1. Severe single vessel coronary artery disease -Diffuse mid RCA disease up to 80% -40% mid LAD 30% proximal OM 2 2. Normal intracardiac filling pressure 3. Successful PCI of proximal to mid RCA with 3 overlapping drug-eluting stents (4.0 x 15, 4.0 x 12, 4.0 x 18 [place]; postdilated with 4.5 NC). Recommendations: To PCU for continued monitoring Loaded with ticagrelor 180 mg in [employer] Continue dual-antiplatelet therapy for at least 1 year Consult cardiac Rehab Discharge medications posted below. (2) HTN (hypertension): resume amlodipine bp at goal. (3) Obesity (BMI 30-39.9): recommend weight loss. Total Time Total Time Spent Total Time Spent (In Minutes): 32 Total Time Includes: Examination of the Patient, Discharge Planning and Medication Reconciliation Discharge Plan Discharge Items Patient Disposition: Home - Self-Care Reason For Visit: NSTEMI Discharge Diagnosis: NSTEMI Activity: Resume your previous activity Non-emergency contact: Primary Care Provider Call non-emergency contact if: you have any medication questions Follow-up/Referrals: Venancio Clark DO [Primary Care Provider] - 05/13/20 11:30 am Diet: Regular and Heart Healthy Addtl Attending Provider Instructions: Home Care: * Take your medications exactly as directed. Don't skip doses. * Remember that recovery after a heart attack takes time. Plan to rest for at lease 4-8 weeks while you recover. Then return to normal activity when your doctor says it's okay. * Ask your doctor about joining a heart rehabilitation program. * Tell your doctor if you are feeling depressed. Feelings of sadness are common after a heart attack, but it is important that you speak to someone if you are feeling overwhelmed by these feelings. * If you are having chest pain, call 911 for an ambulance. Do NOT drive yourself to the hospital. * Ask your family members to learn CPR. * Learn to take your own blood pressure and pulse. Keep a record of your results. Ask your doctor when you should seek emergency medical attention. He or she will tell you which blood pressure reading is dangerous. Lifestyle Changes: * Maintain a healthy weight. Get help to lose any extra pounds. * Cut back on salt. * Limit canned, dried, packaged, and fast foods. * Don't add salt to your food. * Season foods with herbs instead of salt when you cook. * Break the smoking habit. Enroll in a stop-smoking program to improve your chances of success. * Limit fatty foods. * Ask your doctor about having your lipid levels checked regularly. * Build up your activity according to your doctor's recommendation. * Ask your doctor when it's okay to resume sexual activity. * Tell your doctor about any erectile dysfunction (ED) medication you are taking. Some ED medications are not safe if you take certain heart medications. * Try to manage stress. Follow Up: It is important for you to keep your follow up appointments with your medical provider. Pending Studies at Discharge: No Stand-Alone Forms: My [facility], Smoking Cessation Medications and DC Order Prescriptions: New nitroglycerin [Nitrostat] 0.4 mg Tablet, Sublingual 0.4 mg sublingual UD PRN (Reason: chest pain) Qty: 3 RF: 0 metoprolol succinate 50 mg tablet extended release 24 hr 50 mg PO PM Qty: 30 RF: 0 Continued epinephrine 0.3 mg/0.3 mL auto-injector 0.3 ml IM .INJECT 0.3ML INTRAMU Qty: 1 RF: 1 No Action amlodipine 5 mg tablet 5 mg PO QPM RF: 0 aspirin 81 mg tablet,delayed release (DR/EC) 81 mg PO QPM RF: 0 lisinopril [Zestril] 5 mg tablet 5 mg PO QPM RF: 0 Brilinta 90 mg tablet 90 mg PO BID Qty: 60 RF: 0 atorvastatin 80 mg tablet 80 mg PO QPM Qty: 90 RF: 3 Discharge Orders: Discharge Order (Routine); Ordered 05/07/20 Ordered By: Raman Fernandes/Other Patient Handouts: Controlling Your Cholesterol Admission Data Admit Date/Time: 05/05/20 20:35 Attending Provider: Raman Messina Admit Provider: Regine Geronimo Primary Care Provider: Venancio Clark Other Providers: Raman Messina ; Kojo Pereira ; Tano Goyal Other Interventions: Discharge Summary Assessment (RN) Last Done: 05/07/20 10:29 Coding Level of Care Code D/C Day Management >30 mins Diagnoses Chest pain R07.9 Chest pain type: unspecified HTN (hypertension) I10 Obesity (BMI 30-39.9) E66.9
== END 2020-05-07 11:46 | disposition home or self-care (01) ==
LOC: ED 16:46 → 2E 20:35